=== PATIENT | female | born 1980 | race Caucasian/White ===

== ENCOUNTER 2020-10-31 13:28 | Emergency (ER) | payer MEDICARE, OTHER, MEDICAID ==
[~2020-10-31] VITALS: Ht 170.2 cm; Wt 145.1 kg
[2020-10-31 13:40] VITALS: BP 169/104
--- NOTE | 2020-10-31 14:39 | NUR ---
pt rec'd to er c/o abcess to left side of bck and the back of the neck for one week AWAITING EVALUATION BY ER PROVIDER.
[2020-10-31] MEDS ORDERED: HYDROCODONE/APAP 10/325MG TABLET PO ONE (15:00)
[2020-10-31] MEDS ORDERED: SULFAMETH/TRIMETH 800/160 MG 1 UDTAB TABLET PO ONE (15:00)
[2020-10-31] MEDS ORDERED: SULF1TAB48 PO (15:00)
[2020-10-31] MEDS ORDERED: SULFAMETH/TRIMETH 800/160 MG 1 UDTAB TABLET ONE (15:03)
[2020-10-31] MEDS ORDERED: HYDROCODONE/APAP 10/325MG TABLET ONE (15:03)
== END 2020-10-31 15:13 | disposition home or self-care (01) ==
LOC: ER 13:34
DX: L98.419 Non-pressure chronic ulcer of buttock with unspecified severity (principal); L73.9 Follicular disorder, unspecified; I10 Essential (primary) hypertension; E66.9 Obesity, unspecified; Z68.43 Body mass index [BMI] 50.0-59.9, adult; Z98.51 Tubal ligation status; Z88.1 Allergy status to other antibiotic agents; Z88.6 Allergy status to analgesic agent

== ENCOUNTER 2020-11-05 13:25 | Outpatient (CLI) | payer MEDICARE, OTHER ==
[~2020-11-05 13:25] MED LIST: SULF1TAB48 PO
[2020-11-05] MEDS ORDERED: LIDOCAINE 2%-EPI 1:100,000 30 ML VIAL ONE (14:17)
== END 2020-11-05 23:59 | disposition home or self-care (01) ==
LOC: WOU 13:25
PROVIDERS: ATTEND Surgery
DX: L89.223 Pressure ulcer of left hip, stage 3 (principal); E66.01 Morbid (severe) obesity due to excess calories; Z68.43 Body mass index [BMI] 50.0-59.9, adult; I10 Essential (primary) hypertension
CPT/HCPCS: 11042; J3490

== ENCOUNTER 2020-11-09 13:30 | Outpatient (CLI) | payer MEDICARE, OTHER | END 2020-11-09 23:59 | disposition home or self-care (01) | LOC: WOU 13:30 | PROVIDERS: ATTEND Surgery | DX: L89.223 Pressure ulcer of left hip, stage 3 (principal); E66.01 Morbid (severe) obesity due to excess calories; Z68.43 Body mass index [BMI] 50.0-59.9, adult; Z79.899 Other long term (current) drug therapy | CPT/HCPCS: 11042 ==

== ENCOUNTER 2020-11-12 13:50 | Outpatient (CLI) | payer MEDICARE, OTHER | END 2020-11-12 23:59 | disposition home or self-care (01) | LOC: WOU 13:50 | PROVIDERS: ATTEND Surgery | DX: L89.223 Pressure ulcer of left hip, stage 3 (principal); E66.01 Morbid (severe) obesity due to excess calories; Z68.43 Body mass index [BMI] 50.0-59.9, adult; I10 Essential (primary) hypertension | CPT/HCPCS: 11042 ==

== ENCOUNTER 2020-11-19 13:30 | Outpatient (CLI) | payer MEDICARE, OTHER ==
[2020-11-19] MEDS ORDERED: HYDROCORTISONE 1% CREAM 28.35 GM TUBE TP ONE (14:10)
== END 2020-11-19 23:59 | disposition home or self-care (01) ==
LOC: WOU 13:30
PROVIDERS: ATTEND Surgery
DX: L89.223 Pressure ulcer of left hip, stage 3 (principal); E66.01 Morbid (severe) obesity due to excess calories; Z68.43 Body mass index [BMI] 50.0-59.9, adult
CPT/HCPCS: 11042

== ENCOUNTER 2020-12-14 13:00 | Outpatient (CLI) | payer MEDICARE, OTHER ==
[2020-12-14] MEDS ORDERED: LIDOCAINE SOLN 4% 50 ML BOTTLE ONE (13:05)
== END 2020-12-14 23:59 | disposition home or self-care (01) ==
LOC: WOU 13:00
PROVIDERS: ATTEND Surgery
DX: L89.223 Pressure ulcer of left hip, stage 3 (principal); E66.01 Morbid (severe) obesity due to excess calories; Z68.43 Body mass index [BMI] 50.0-59.9, adult
CPT/HCPCS: 17250

== ENCOUNTER 2021-01-04 14:00 | Outpatient (CLI) | payer MEDICARE, OTHER | END 2021-01-04 23:59 | disposition home or self-care (01) | LOC: WOU 14:00 | PROVIDERS: ATTEND Surgery | DX: Z09 Encounter for follow-up examination after completed treatment for conditions other than malignant neoplasm (principal); E66.01 Morbid (severe) obesity due to excess calories; Z68.43 Body mass index [BMI] 50.0-59.9, adult; I10 Essential (primary) hypertension | CPT/HCPCS: G0463 ==

== ENCOUNTER 2021-06-10 13:15 | Outpatient (CLI) | payer MEDICARE, OTHER ==
[2021-06-10] MEDS ORDERED: SILVER SULFADIAZINE CREAM 25 GM TUBE ONE (13:53)
== END 2021-06-10 23:59 | disposition home or self-care (01) ==
LOC: WOU 13:15
PROVIDERS: ATTEND Surgery
DX: T21.35XA Burn of third degree of buttock, initial encounter (principal); T21.34XA Burn of third degree of lower back, initial encounter; T31.0 Burns involving less than 10% of body surface; X15.8XXA Contact with other hot household appliances, initial encounter; Y93.89 Activity, other specified; Y92.89 Other specified places as the place of occurrence of the external cause; E66.01 Morbid (severe) obesity due to excess calories; Z68.43 Body mass index [BMI] 50.0-59.9, adult
CPT/HCPCS: G0463